=== PATIENT | female | born 1975 | race African-American/Black ===

== ENCOUNTER 2017-11-20 23:26 | Emergency (ER) | payer BC ==
[~2017-11-20] VITALS: Ht 185.4 cm; Wt 99.8 kg
--- NOTE | ~2017-11-20 | EKG ---
[place] [address] [address] [facility] [place] [address] ELECTROCARDIOGRAM REPORT Name: SHONA HAMMERAUBRIE Anne [id number] Admission: 11/20/17 Attend Phys: Discharge: 11/21/17 Date of : 77 Report #: [id number] THIS REPORT FOR: //name// [facility] ED Test Date: 2017-11-21 Test Time: 00:05:34 Pat Name: KARINA HAMMER Department: Room: Gender: F [employer] Clerk: fara : 1975 Requested By: Michele Carranza Order Number: [id number] MD: Gabino Owen Measurements Intervals [place] Rate: 71 P: 24 OH: 144 QRS: 38 QRSD: 101 T: -17 QT: 392 QTc: 426 Interpretive Statements Sinus rhythm Borderline T abnormalities, inferior leads No previous ECG available for comparison Electronically Signed On 11-22-2017 16:32:22 CDT by Gabino Owen [email or web address] <ELECTRONICALLY SIGNED> By: Gabino Owen MD, [facility] 11/22/17 1632 0005 0005 Gabino Owen MD, FACC /EPI
[2017-11-20] MEDS ORDERED: UNICOMPLEX M TA1 TA1 PO (23:48)
[2017-11-20] MEDS ORDERED: VITAMIN D1000 UNI1 PO (23:48)
[2017-11-20] MEDS ORDERED: IRON325 PO (23:49)
[2017-11-21 01:05] LABS: ATYPICAL LYMPHS 4 %
[2017-11-21 01:06] LABS: ANION GAP 7 mmol/L (7-16); BUN 13 mg/dL (7-18); CALCIUM 8.3 mg/dL (8.5-10.1); CHLORIDE 105 mmol/L (98-107); CO2 25 mmol/L (21-32); CREATININE 0.8 mg/dL (0.6-1.0); GLUCOSE 98 mg/dL (74-106); POTASSIUM 3.4 mmol/L (3.5-5.1); SODIUM 137 mmol/L (136-145)
[2017-11-21 01:06] LABS: LARGE PLATELETS OCCASIONAL
[2017-11-21 01:07] LABS: CORRECTED WBC 6.3 thou/uL (4.0-11.0); WBC 6.3 thou/uL (4.0-11.0)
[2017-11-21 01:08] LABS: MCH 29.7 pg (26.0-34.0); MCHC 34.1 % (28.0-37.0); MCV 87.2 fL (80.0-100.0); PLATELET COUNT 295 thou/uL (150-400); RDW 12.3 % (10.5-14.5)
[2017-11-21 01:10] LABS: ABSOLUTE NEUTROPHILS 2.8 thou/uL (1.4-8.2)
[2017-11-21 01:15] LABS: ALBUMIN 3.5 g/dL (3.4-5.0); LIPASE 79 U/L (73-393); SGOT 15 U/L (15-37); SGPT 21 U/L (30-65); TOTAL BILIRUBIN 0.5 mg/dL (<0.1-1.0); TOTAL PROTEIN 7.6 g/dL (6.4-8.2); TROPONIN-I < 0.04 ng/mL (<0.06)
[2017-11-21 01:50] LABS: URINE BILIRUBIN NEGATIVE (Negative); URINE BLOOD 2+ (Negative); URINE CLARITY CLEAR; URINE COLOR YELLOW; URINE GLUCOSE-RANDOM* NEGATIVE (Negative); URINE KETONES NEGATIVE (Negative); URINE LEUKOCYTES-REFLEX NEGATIVE (Negative); URINE NITRITE-REFLEX NEGATIVE (Negative); URINE PROTEIN (DIPSTICK) NEGATIVE (Negative); URINE SPECIFIC GRAVITY <= 1.005 (1.005-1.035); URINE UROBILINOGEN 0.2 E.U./dl (0.2-1.0)
[2017-11-21 02:00] LABS: BACTERIA-REFLEX None Seen /HPF (None Seen); CASTS None Seen /LPF (None Seen); CRYSTALS None Seen /LPF (None Seen); MUCUS None Seen strn/LPF (None Seen); SQUAMOUS 0-3 Few /LPF (0-3); URINE RBC 3-10 Few /HPF (0-2); URINE WBC-REFLEX None Seen /HPF (0-5)
[2017-11-21] MEDS ORDERED: ZOFRAN ODT8 MG PO (02:54)
[2017-11-21] MEDS ORDERED: PEPCID20 MG PO (02:54)
[2017-11-21 03:17] VITALS: BP 126/80
== END 2017-11-21 03:19 | disposition home or self-care (01) ==
LOC: ER 23:26
PROVIDERS: Emergency Medicine
DX: R19.7 Diarrhea, unspecified (principal); R10.30 Lower abdominal pain, unspecified; R42 Dizziness and giddiness